=== PATIENT | male | born 1930 | race Two or more races ===

== ENCOUNTER 2016-12-14 21:29 | Emergency (ER) | payer MEDICARE ==
[~2016-12-14] VITALS: Ht 180.3 cm; Wt 86.2 kg
[2016-12-14 21:34] VITALS: BP 96/63
--- NOTE | 2016-12-14 22:04 | Emergency Room Report ---
History of Present Illness General Chief Complaint: Altered Mental Status Source: Patient, Family Member, EMS Present Illness HPI This is an 86-year-old male with multiple medical history. He has a history of CAD with previous surgery. Also has history of intracranial bleed with 2 surgeries. He was with family sitting down at a bridge tournament. He then slumped over. Did not fall. This happened 3 times. He fell weeks. No chest pain. No fever or chills. No nausea no vomiting. No other complaint. Allergies: Coded Allergies: No Known Allergies (Unverified , 12/14/16) Patient History Past Medical History: see triage record, old chart reviewed Past Surgical History: CABG, other Pertinent Family History: none Social History: Denies: smoking Immunizations: other Reviewed Nursing Documentation: PMH: Agreed, PSxH: Agreed Nursing Documentation-PMH Past Medical History: No History, Except For Hx Cardiac Problems: Yes - Stent 7 years ago Hx Hypertension: Yes History Of Psychiatric Problem: Yes - dementia, depression Review of Systems Constitutional: Reports: weakness Eye: Denies: blurred vision, eye pain ENT: Denies: ear pain, nose congestion, throat swelling Respiratory: Denies: cough, shortness of breath Cardiovascular: Denies: chest pain, palpitations Gastrointestinal: Denies: abdominal pain, diarrhea, nausea, vomiting Musculoskeletal: Denies: back pain, joint pain Skin: Denies: rash Neurological: Denies: headache, numbness Endocrine: Denies: increased thirst, increased urine Hematologic/Lymphatic: Denies: easy bruising All Other Systems: negative except mentioned in HPI Physical Exam Vital Signs Date Time Temp Pulse Resp B/P Pulse Ox O2 Delivery O2 Flow Rate FiO2 12/14/16 21:27 98.8 68 17 96/63 96 Room Air vitals with mild hypotension Sp02 EP Interpretation: reviewed, normal General Appearance: no apparent distress, alert, Chronically Ill Head: normocephalic, atraumatic Eyes: bilateral eye EOMI, bilateral eye PERRL ENT: hearing grossly normal, normal pharynx Neck: full range of motion, supple, no meningismus Respiratory: chest non-tender, lungs clear, normal breath sounds Cardiovascular #1: regular rate, rhythm, no murmur Gastrointestinal: normal bowel sounds, non tender, no mass, no organomegaly, no bruit, non-distended Musculoskeletal: back normal, normal range of motion Neurologic: alert Psychiatric: mood/affect normal Skin: warm/dry Medical Decision Making Diagnostic Impression: Primary Impression: Altered mental status Qualified Codes: R41.82 - Altered mental status, unspecified Additional Impressions: Syncope and collapse Chronic kidney disease Qualified Codes: N18.9 - Chronic kidney disease, unspecified ER Course Patient presents with altered mental status and syncope. Differential includes TIA/CVA, seizure, cardiogenic etiology to name a few. Could be also infection. Patient has not given a urine sample yet. I discussed the case with Juancarlos who accepted the patient for transfer. Lab Results Impression labs unremarkable EKG Diagnostic Results Rate: normal Rhythm: NSR ST Segments: no acute changes Rhythm Strip Diag. Results EP Interpretation: yes Rate: 60 Rhythm: NSR, no PVC's, no ectopy Chest X-Ray Diagnostic Results EP Interpretation: Yes Findings: no consolidation, no effusion, no pneumothorax, no acute cardiopulmonary disease Number of Views: 1 CT/MRI/US Diagnostic Results CT/MRI/US Diagnostic Results : Imaging Test Ordered: ct head Impression Neg per radiologist. Last Vital Signs Date Time Temp Pulse Resp B/P Pulse Ox O2 Delivery O2 Flow Rate FiO2 12/14/16 21:27 98.8 68 17 96/63 96 Room Air Status: improved Disposition: [facility] Condition: Stable PAPITO POWERS M.D. Dec 14, 2016 22:04
[2016-12-14 22:51] LABS: BASOPHILS % (AUTO) 1.4 % (0.0-2.0); EOSINOPHILS % (AUTO) 1.2 % (0.0-3.0); LYMPHOCYTES % (AUTO) 31.9 % (20.0-45.0); MEAN CORPUSCULAR HEMOGLOBIN 29.6 PG (27.0-31.0); MEAN CORPUSCULAR HGB CONC 31.7 G/DL (32.0-36.0); MEAN CORPUSCULAR VOLUME 93 FL (80-99); MEAN PLATELET VOLUME 7.9 FL (6.5-10.1); MONOCYTES % (AUTO) 7.9 % (1.0-10.0); NEUTROPHILS % (AUTO) 57.5 % (45.0-75.0); PLATELET COUNT 199 K/UL (150-450); RED BLOOD COUNT 5.21 M/UL (4.70-6.10); RED CELL DISTRIBUTION WIDTH 12.9 % (11.6-14.8); WHITE BLOOD COUNT 5.5 K/UL (4.8-10.8)
[2016-12-14 23:11] LABS: TROPONIN I < 0.30 ng/mL (<=0.30)
[2016-12-14 23:12] LABS: ALANINE AMINOTRANSFERASE 11 U/L (3-41); ALBUMIN/GLOBULIN RATIO 1.1 (1.0-2.7); ANION GAP 18 (5-15); ASPARTATE AMINO TRANSFERASE 23 U/L (5-40); CALCIUM 8.3 mg/dL (8.6-10.2); CARBON DIOXIDE 19 mEQ/L (20-30); CHLORIDE 103 mEQ/L (98-107); CREATININE 1.6 mg/dL (0.7-1.2); HEMOLYSIS 197; POTASSIUM 4.2 mEQ/L (3.4-4.9); SODIUM 140 mEQ/L (135-145); TOTAL PROTEIN 6.1 g/dL (6.6-8.7)
[2016-12-14 23:13] LABS: PROTHROMBIN TIME 10.1 SEC (9.30-11.50)
[2016-12-14 23:22] LABS: CKMB 1.7 ng/mL (< 6.7)
[2016-12-14 23:43] VITALS: BP 132/61
[2016-12-15 00:19] LABS: APPEARANCE,URINE CLEAR; KETONES,URINE NEGATIVE (NEGATIVE); LEUKOCYTE ESTERASE ,URINE NEGATIVE (NEGATIVE); NITRITE,URINE NEGATIVE (NEGATIVE); PROTEIN,URINE NEGATIVE (NEGATIVE); UROBILINOGEN,URINE NORMAL MG/DL (0.0-1.0)
[2016-12-15 01:38] VITALS: BP 101/68
--- NOTE | 2016-12-15 08:48 | Diagnostic Imaging Report ---
Indications: Altered mental status Technique: Spiral acquisitions obtained through the brain. Angled axial and coronal 5 x 5 mm slices were reconstructed. Total dose length product 1298 mGycm. CTDI vol(s) 70 mGy Comparison: None Findings: There is evidence of prior bilateral frontoparietal craniotomies. There is age-related enlargement of ventricles and extra axial CSF spaces. There is periventricular deep white matter chronic ischemic change. No acute hemorrhage or edema. No mass effect or midline shift. Visualized orbits and sinuses are unremarkable. Impression: Chronic and age-related changes. Post surgical changes, as described Negative for acute intracranial bleed or mass effect The CT scanner at [facility] is accredited by the [employer] and the scans are performed using protocols designed to limit radiation exposure to as low as reasonably achievable to attain images of sufficient resolution adequate for diagnostic evaluation.
--- NOTE | 2016-12-15 09:55 | Diagnostic Imaging Report ---
Indication: Shortness of breath Technique: One view of the chest Comparison: none Findings: There is elevation of left hemidiaphragm. There is bilateral basilar atelectasis. The heart size is normal. Prior CABG. Impression: Bilateral basilar atelectasis No acute process otherwise
--- NOTE | 2016-12-22 14:55 | Cardiology Report ---
APPROVED REPORT EKG Measurement Heart [id number] Normal sinus rhythm Nonspecific T wave abnormality Abnormal ECG
== END 2016-12-15 01:40 | disposition short-term general hospital (02) ==
LOC: EDBD 21:29 → EMR 22:34
DX: R41.82 Altered mental status, unspecified (principal); R55 Syncope and collapse; N18.9 Chronic kidney disease, unspecified; I10 Essential (primary) hypertension; F32.9 Major depressive disorder, single episode, unspecified; F03.90 Unspecified dementia, unspecified severity, without behavioral disturbance, psychotic disturbance, mood disturbance, and anxiety; Z95.5 Presence of coronary angioplasty implant and graft; Z95.1 Presence of aortocoronary bypass graft; I25.10 Atherosclerotic heart disease of native coronary artery without angina pectoris
CPT/HCPCS: 36415; 70450; 71010; 80053; 81003; 82550; 82553; 83880; 84484; 85025; 85610; 85730; 93005; 96360